=== PATIENT | female | born 2000 | race African-American/Black ===

== ENCOUNTER 2022-10-31 07:15 | Inpatient (IN) | payer OTHER ==
[2022-10-31] MEDS: ELECTROLYTE-148 SOLN 1,000 ML IV SCH ×2 (08:45→15:15)
[2022-10-31 08:59] VITALS: BMI 28.3
[2022-10-31] MEDS ORDERED: OXYTOCIN 30 UNITS in 0.9% NS 30 UNIT/500 ML INFUS.BAG IVPB ONE (09:00)
[2022-10-31] MEDS ORDERED: OXcarbazepine 300 MG/5 ML 250 ML BULK BOTTLE PO ONE (10:11)
[2022-10-31] MEDS ORDERED: OXYTOCIN 30 UNITS in 0.9% NS 30 UNIT/500 ML INFUS.BAG IVPB SCH (10:15)
[2022-10-31] MEDS ORDERED: FENTANYL/BUPIVACAINE/NS/PF - PCEA - 50 ML DISP.SYRIN EP ONE (17:02)
[2022-10-31] MEDS ORDERED: BUPIVACAINE HCL/PF 0.25% (2.5MG/ML) 10 ML VIAL ONE ×2 (17:02→17:29)
[2022-10-31] MEDS ORDERED: NALOXONE HCL 0.4 MG/ML VIAL IVPUSH PRN (17:42)
[2022-10-31] MEDS ORDERED: FENTANYL/BUPIVACAINE/NS/PF - PCEA - 50 ML DISP.SYRIN EP SCH (17:45)
[2022-10-31] MEDS ORDERED: LIDOCAINE HCL 1% PRESERVATIVE FREE - 30ML VIAL ONE (21:04)
[2022-10-31] MEDS ORDERED: OXYTOCIN 20 UNITS in 0.9% NS 20 UNIT/1,000 ML INFUS.BAG IV ONE (21:04)
[2022-10-31] MEDS ORDERED: LACOSAMIDE 100 MG TABLET PO SCH (22:00)
[2022-10-31] MEDS: LACOSAMIDE 50 MG TABLET PO SCH (22:50)
[2022-10-31] MEDS: OXcarbazepine 300 MG TABLET (UD) PO SCH (22:50)
[2022-10-31] MEDS: IBUPROFEN 600 MG TABLET (FP) PO PRN (22:55)
[2022-10-31] MEDS ORDERED: IBUPROFEN 600 MG TABLET (FP) PO ONE (22:56)
[2022-10-31] MEDS ORDERED: BENZOCAINE 28 GM HEMORRHOIDAL OINTMENT TP PRN (23:16)
[2022-10-31] MEDS ORDERED: BENZOCAINE 20% 57 GM BOTTLE TP PRN (23:16)
[2022-10-31] MEDS ORDERED: ACETAMINOPHEN 325 MG TABLET (FP) PO PRN (23:16)
[2022-10-31] MEDS ORDERED: WITCH HAZEL 50% (TUCKS) 40 PAD/JAR PAD TP PRN (23:16)
[2022-10-31] MEDS ORDERED: BISACODYL 10 MG SUPP.RECT RC PRN (23:16)
[2022-10-31] MEDS ORDERED: oxyCODONE HCL 5 MG TABLET PO PRN (23:16)
[2022-10-31] MEDS ORDERED: METHYLERGONOVINE MALEATE 0.2 MG/1 ML AMP IM PRN (23:16)
[2022-10-31] MEDS ORDERED: OXYTOCIN 20 UNITS in 0.9% NS 20 UNIT/1,000 ML INFUS.BAG IV SCH (23:30)
[2022-11-01 07:44] LABS: BASO % 0.2 % (0-2.0); EOS % 1.2 % (0-4.5); HEMATOCRIT 28.5 % (32.4-45.2); HEMOGLOBIN 9.4 GM/dL (10.7-15.3); LYMPH % 8.1 % (8-40); MCH 24.1 pg (25.7-33.7); MCHC 32.9 g/dl (32.0-36.0); MEAN CELL VOLUME 73.3 fl (80-96); MEAN PLT VOLUME 9.3 fl (7.5-11.1); MONO % 3.3 % (3.8-10.2); NEUT % 87.2 % (42.8-82.8); PLATELET COUNT 215 10^3/uL (134-434); RBC 3.88 M/mm3 (3.60-5.2); RDW 16.8 % (11.6-15.6)
[2022-11-01] MEDS: OXcarbazepine 300 MG TABLET (UD) PO SCH ×2 (10:36→21:51)
[2022-11-01] MEDS: IBUPROFEN 600 MG TABLET (FP) PO PRN ×2 (10:37→17:36)
[2022-11-01] MEDS: LACOSAMIDE 50 MG TABLET PO SCH ×2 (10:38→21:52)
[2022-11-01 16:22] LABS: MAGNESIUM 1.7 mg/dL (1.8-2.4)
[2022-11-01] MEDS ORDERED: SENNOSIDES/DOCUSATE COMBO (SENNA PLUS) TABLET (UD) PO PRN (22:00)
[2022-11-02] MEDS: IBUPROFEN 600 MG TABLET (FP) PO PRN (09:34)
[2022-11-02 11:17] VITALS: BP 107/70; PULSE 77; RESP 16; TEMP 98.5
[2022-11-02] MEDS: OXcarbazepine 300 MG TABLET (UD) PO SCH (12:29)
[2022-11-02] MEDS: LACOSAMIDE 50 MG TABLET PO SCH (12:30)
[2022-11-02 13:05] LABS: BLOOD UREA NITROGEN 9.6 mg/dL (7-18); CALCIUM 8.4 mg/dL (8.5-10.1)
[2022-11-02 13:08] LABS: CREATININE 0.8 mg/dL (0.55-1.3)
== END 2022-11-02 18:50 | disposition home or self-care (01) | DRG 560 ==
LOC: JLDR 07:15 → J3W 11-01 04:06
PROVIDERS: ADMIT Specialist; ATTEND Specialist
PROC: 10E0XZZ Delivery of Products of Conception, External Approach (ICD-10-PCS; principal; 2022-10-31)
PROC: 0W8NXZZ Division of Female Perineum, External Approach (ICD-10-PCS; 2022-10-31)
PROC: 10907ZC Drainage of Amniotic Fluid, Therapeutic from Products of Conception, Via Natural or Artificial Opening (ICD-10-PCS; 2022-10-31)
DX: O99.354 Diseases of the nervous system complicating childbirth (principal); G40.909 Epilepsy, unspecified, not intractable, without status epilepticus; O99.893 Other specified diseases and conditions complicating puerperium; R00.0 Tachycardia, unspecified; Z37.0 Single live birth; Z3A.39 39 weeks gestation of pregnancy
CPT/HCPCS: 36415; 59409; 71260-TC; 80048; 80053; 83735; 84443; 85025; 85027; 85610; 85730; 86780; 86850; 86900; 86901; 87389; 93005; 93010; 93306-TC; C9803-CS; Q9967; U0003; U0005